=== PATIENT | female | born 1990 | race Caucasian/White ===

== ENCOUNTER → 2021-08-21 08:17 | Outpatient (CLI) | payer OTHER, SELFPAY ==
--- NOTE | ~2021-08-21 | MMUS_ITS ---
EXAMINATION: MM diagnostic [facility] BI w ana, US breast BI limited HISTORY: Palpable right breast abnormality. TECHNIQUE: Additional 3-D tomosynthesis images of the breasts were performed and synthetic 2-D images were generated. CAD analysis was submitted and interpreted. High resolution limited bilateral breast ultrasound was performed. COMPARISON: Right mammogram dated 06/21/2018. No prior left mammograms are available. BREAST PARENCHYMAL COMPOSITION: The breasts are heterogenously dense, which may obscure small masses. FINDINGS: MAMMOGRAPHIC FINDINGS: Stable focal asymmetry upper outer quadrant of the right breast. No discrete mass identified. There i s a radiolucent mass in the mid outer aspect of the left breast which is obscured by fibroglandular t issue. This mass is less dense with spot compression views and may partially represents overlapping f ibroglandular tissue. No suspicious calcifications or architectural distortion in the left breast. ULTRASOUND: Limited right breast ultrasound: Normal heterogeneous echotexture without focal mass. Limited left breast ultrasound: At 12:00, 3 cm from the nipple there is a 4 mm cyst. At 1:00, 5 cm fr om the nipple there is an oval hypoechoic mass measuring 4 mm with low-level internal echoes, no post erior features and no internal vascularity. These masses may partially represent the mass seen on [facility] mography. IMPRESSION: 1. Probable benign left breast findings. 2. Recommend 6 month follow-up diagnostic left mammogram and ultrasound. BI-RADS category 3, probably benign findings. Reviewed, dictated and finalized at location A. IMPRESSION: 1. Probable benign left breast findings. 2. Recommend 6 month follow-up diagnostic left mammogram and ultrasound. BI-RADS category 3, probably benign findings.
== END ==
PROVIDERS: PCP Family Medicine; Visit Provider Obstetrics & Gynecology
DX: N63.0 Unspecified lump in unspecified breast (principal); R92.8 Other abnormal and inconclusive findings on diagnostic imaging of breast
CPT/HCPCS: 76642; 77062; 77066; G0279

== ENCOUNTER → 2022-03-17 09:16 | Outpatient (CLI) | payer OTHER, SELFPAY ==
--- NOTE | ~2022-03-17 | MMUS_ITS ---
EXAMINATION: MM diagnostic [facility] w ana, US breast LT limited HISTORY: Follow-up left breast mass TECHNIQUE: Additional 3-D tomosynthesis images of the left breast were performed and synthetic 2-D im ages were generated. CAD analysis was submitted and interpreted. High resolution Limited left breast ultrasound was performed. COMPARISON: 08/21/2021 BREAST PARENCHYMAL COMPOSITION: Breast composed of scattered areas of fibroglandular density FINDINGS: MAMMOGRAPHIC FINDINGS: Mass in the mid outer aspect of the left breast is unchanged from prior examination. No suspicious ca lcifications or architectural distortion. ULTRASOUND: Limited left breast ultrasound: At 12:00, 3 cm from the nipple there is an oval shaped anechoic mass with enhanced through transmission measuring 4 mm, without significant change in size compared with p rior examination. No significant change in configuration allowing for for differences of technique. A t 1:00, 5 cm from the nipple there is an oval circumscribed hypoechoic mass measuring 5 mm, stable co mpared with prior examination allowing for technique. There is parallel orientation, no posterior fea tures or internal vascularity. IMPRESSION: 1. Stable likely benign left breast masses. 2. Recommend 6 month follow-up diagnostic bilateral mammogram and Limited left breast ultrasound. BI-RADS category 3, probably benign findings. Reviewed, dictated and finalized at location A. TICAL SCIENCE PROFESSOR IMPRESSION: 1. Stable likely benign left breast masses. 2. Recommend 6 month follow-up diagnostic bilateral mammogram and Limited left breast ultrasound. BI-RADS category 3, probably benign findings.
== END ==
PROVIDERS: PCP Family Medicine; Visit Provider Obstetrics & Gynecology
DX: R92.8 Other abnormal and inconclusive findings on diagnostic imaging of breast (principal)
CPT/HCPCS: 76642; 77061; 77065; G0279

== ENCOUNTER → 2022-12-08 14:13 | Outpatient (CLI) | payer OTHER, SELFPAY ==
--- NOTE | ~2022-12-08 | MMUS_ITS ---
EXAMINATION: [facility] BI w ana, US breast BI limited HISTORY: Left breast lump TECHNIQUE: ML, MLO and CC 3-D tomosynthesis images of both breasts were performed and synthetic 2-D i mages were generated. CAD analysis was submitted and interpreted. High resolution right upper outer q uadrant and left upper and lower outer quadrant breast ultrasound was performed. COMPARISON: 03/17/2022 diagnostic left mammogram and limited left breast ultrasound 08/21/2021 bilateral diagnostic mammography and bilateral Limited breast ultrasound 06/21/2018 diagnostic right mammogram 02/20/2016 complete right breast ultrasound BREAST PARENCHYMAL COMPOSITION: There are scattered areas of fibroglandular density. FINDINGS: MAMMOGRAPHIC FINDINGS: Stable circumscribed opacity deep in the posterior mid to lower outer left breast since 08/21/2021, vianney suring approximately 7 x 10 x 15 mm.. No interval suspicious mass, architectural distortion, malignant calcification, skin thickening or re traction or significant new or developing density since 08/21/2021 is noted. ULTRASOUND: Right breast: 12:00 2 cm from nipple: 3 x 4.7 x 5 mm simple cyst with through transmission 11:00 4 cm from nipple: 4.5 x 5.4 x 5 mm circumscribed hypoechoic area without internal vascularity o r posterior shadowing, benign in appearance Left breast: 12:00 3 cm from nipple: 3.8 x 4.1 mm simple cyst 1:00 5 cm from nipple: Parallel circumscribed hypoechoic 2.4 x 5.7 x 4.1 mm lesion without internal v ascularity or posterior shadowing 3:00 4 cm from nipple: 6.4 x 9 x 7.5 mm sonolucency without posterior features; this corresponds to t he approximate position of the chronic stable mammographic lesion IMPRESSION: 1. Benign findings 2. Routine annual mammographic screening is recommended BI-RADS Category 2: Benign finding(s). Reviewed, dictated and finalized at location A. IMPRESSION: 1. Benign findings 2. Routine annual mammographic screening is recommended BI-RADS Category 2: Benign finding(s).
== END ==
PROVIDERS: PCP Obstetrics & Gynecology; Visit Provider Obstetrics & Gynecology
DX: N63.20 Unspecified lump in the left breast, unspecified quadrant (principal); R92.8 Other abnormal and inconclusive findings on diagnostic imaging of breast
CPT/HCPCS: 76642; 77062; 77066; G0279

== ENCOUNTER 2023-06-16 08:41 | Outpatient (CLI) | payer OTHER, SELFPAY ==
[2023-06-23 16:33] VITALS: BMI 27.3
--- NOTE | 2023-06-23 16:33 | WPDHOMESLEEP ---
Sleep Study - Home Unattended Date of Study: 06/16/23 Ordering Provider: CY Syed-Kevin Interpreting Provider: Willow Miller, DO Home Sleep Study Type: Watch PAT Height: 1.73 m Weight: 81.647 kg Body Mass Index: 27.3 Neck Circumference (inches): 14.5 [place]: 13 Reason for Sleep Study Unrefreshing sleep Sleep History The patient is a 33-year-old female that had a sleep study ordered by her primary care for evaluation of sleep apnea. The patient frequently awakens from sleep short of breath. She denies awakening at night with heartburn, belching or cough. She frequently snores but it is never loud enough that others complain. She frequently has trouble sleeping when she has a cold. She denies waking up gasping for air throughout the night. She occasionally has breathing problems at night observed by herself or others. She rarely sweats excessively at night. She denies having heart palpitations or irregular heartbeats during the night. She occasionally falls asleep during the day but never while driving. She denies sleep paralysis, cataplexy and hypnagogic / hypnopompic hallucinations. She occasionally has trouble at school or work due to sleepiness. She frequently has nightmares and frequently remembers her dreams. She denies having thoughts racing through her mind. She denies feeling sad, depressed or anxious. She denies having muscular tension. She rarely notices parts of her body jerk. She denies kicking during the night. She denies having crawling and aching feelings in her legs and denies having leg pain during the night. She occasionally grinds her teeth during sleep and constantly awakens with morning jaw pain. She is rarely bothered by pain during the day and never awakened by pain during the night. She frequently wakes up feeling stiff in the morning. She rarely wakes up with sore or achy muscles. She constantly wakes up with pain in the neck, spine and other joints. She goes to bed between 9-10 p.m. on both weekdays and weekends. It takes her 30-40 minutes to fall asleep. She wakes up 3-4 times throughout the night to adjust her position and is able to fall back asleep within 5 minutes. She wakes up between 6-7 a.m. on both weekdays and weekends. She typically gets 7-8 hours of sleep per night. She currently lives with her and toddler. She denies consuming any caffeinated beverages within 2 hours of bedtime. She denies engaging in physical exercise before bedtime. She will read before falling asleep. She denies watching television before falling asleep. She denies taking naps in the afternoon or the evening. She consumes several cups of coffee daily. She denies tobacco, alcohol and recreational drug use. [facility] Past Medical History Medical History Incompetent cervix Surgical History Surgical History History of cervical cerclage Family History Family History Father Diabetes mellitus Afib Mother Diabetes mellitus Sibling Asthma Sibling Hypertension Grandparent Heart problem Cerebrovascular accident Grandparent Lung cancer Brain cancer Grandparent Cerebrovascular accident Grandparent Heart attack Social History Social History Social History: Caffeine: Coffee, tea, cola Several Smoking status: Never smoker Alcohol intake: never Substance use: never Do You Feel Safe in your Home?: Yes Lack of Transportation: No Lack of Food: Never True Current Housing: I Have Housing Concerned About Future Housing: No Difficulty Paying Gas/Electric Bills: No Difficulty Paying for Meds: No Currently Unemployed: No Education: Bachelor's Degree Difficulty w/ Childcare or Family Care
== END 2023-06-17 07:30 | disposition home or self-care (01) ==
LOC: ANHCSM 08:42
PROVIDERS: PCP Clinical Nurse Specialist; Visit Provider Clinical Nurse Specialist
DX: G47.10 Hypersomnia, unspecified (principal)
CPT/HCPCS: 95800

== ENCOUNTER 2023-07-06 08:55 | Outpatient (CLI) | payer OTHER, SELFPAY ==
[2023-07-16 18:14] VITALS: BMI 26.6
--- NOTE | 2023-07-16 18:14 | WPDSLEEPSTUD ---
Sleep Study Date of Study: 07/06/23 Ordering Provider: MELANIA Syed Interpreting Physician: Molly Alvarez MD Sleep Study Type: Polysomnogram Height: 1.73 m Weight: 79.379 kg Body Mass Index: 26.6 Neck Circumference (inches): 16 [place]: 13 Reason for Sleep Study Hypersomnolence, recent home sleep test June 15 with a low apnea hypopnea index 1.4 with desaturiaton to 82%; she returns for in-lab split night testing for concerns regarding sleep apnea Sleep History Carly Pearson is a 33-year-old female who had a recent home sleep test June 15 for excessive daytime sleepiness. She frequently awakens from sleep short of breath. She denies awakening at night with heartburn, belching or coughing. She frequently snores but it is never loud enough that others complain. She frequently has trouble sleeping when she has a cold. She denies waking up gasping for air at night. She occasionally has breathing problems at night observed by others. She rarely sweats excessively at night. She denies having heart palpitations or irregular heartbeats during the night. She occasionally falls asleep during the day but never while driving. She denies feeling muscle weakness upon falling asleep or upon waking. She does not have muscle weakness with strong emotion, nor does she have vivid dreams on falling asleep or upon waking. She occasionally has trouble at school or work due to sleepiness. She frequently has nightmares and frequently remembers her dreams. She denies having thoughts racing through her mind. She denies feeling sad, depressed or anxious. She denies having muscular tension. She rarely notices parts of her body jerk. She denies kicking during the night. She denies having crawling and aching feelings in her legs and denies having leg pain during the night. She occasionally grinds her teeth during sleep and constantly awakens with morning jaw pain. She is rarely bothered by pain during the day and never awakened by pain during the night. She frequently wakes up feeling stiff in the morning. She rarely wakes up with sore or achy muscles. She constantly wakes up with pain in the neck, spine and other joints. She goes to bed between 9-10 p.m. on both weekdays and weekends. It takes her 30-40 minutes to fall asleep. She wakes up 3-4 times throughout the night to adjust her position, returns to sleep within 5 minutes. She wakes up between 6-7 a.m. on both weekdays and weekends. She typically gets 7-8 hours of sleep per night. She currently lives with her and toddler. She reads before falling asleep. She denies taking naps in the afternoon or the evening. Tobacco: never smoker Caffeine: several cups of coffee daily Alcohol: none Recreational substances: none PMFSH Past Medical History Medical History Incompetent cervix Surgical History Surgical History History of cervical cerclage Family History Family History Father Diabetes mellitus Afib Mother Diabetes mellitus Sibling Asthma Sibling Hypertension Grandparent Heart problem Cerebrovascular accident Grandparent Lung cancer Brain cancer Grandparent Cerebrovascular accident Grandparent Heart attack Social History Social History Social History: Caffeine: Coffee, tea, cola Several Smoking status: Never smoker Alcohol intake: never Substance use: never Do You Feel Safe in your Home?: Yes Lack of Transportation: No Lack of Food: Never True Current Housing: I Have Housing Concerned About Future Housing: No Difficulty Paying Gas/Electric Bills: No Difficulty Paying for Meds: No Currently Unemployed: No Education: Bachelor's Degree Difficulty w/
== END 2023-07-07 07:09 | disposition home or self-care (01) ==
LOC: ANHCSM 08:55
PROVIDERS: PCP Clinical Nurse Specialist; Visit Provider Clinical Nurse Specialist
DX: G47.10 Hypersomnia, unspecified (principal)
CPT/HCPCS: 95810